=== PATIENT | male | born 1940 | race Caucasian/White ===

== ENCOUNTER → 2017-12-13 | Outpatient (CLI) | payer MEDICARE, OTHER ==
[2017-12-13] MEDS: SOD CHLORIDE 0.9% 100 ML (09:28)
[2017-12-13] MEDS: IOHEXOL 300MG/ML 150 ML BTL (09:28)
== END | disposition home or self-care (01) ==
LOC: C/S 08:34
DX: R31.9 Hematuria, unspecified (principal)
CPT/HCPCS: 74178

== ENCOUNTER → 2018-01-18 | Outpatient (CLI) | payer MEDICARE, OTHER | END | disposition home or self-care (01) | LOC: RAD 11:25 | DX: Z01.818 Encounter for other preprocedural examination (principal) | CPT/HCPCS: 71046 ==

== ENCOUNTER → 2018-03-03 | Outpatient (CLI) | payer MEDICARE, OTHER | END | disposition home or self-care (01) | LOC: NUC 08:31 | DX: C61 Malignant neoplasm of prostate (principal) | CPT/HCPCS: 78306; A9503 ==

== ENCOUNTER 2018-07-24 12:51 | Inpatient (IN) | payer MEDICARE, OTHER ==
[2018-07-24 13:40] LABS: ABNORMAL IP MESSAGE 1; HEMATOCRIT 28.9 % (42.0-52.0); HEMOGLOBIN 9.3 g/dl (14.0-18.0); MEAN CORPUSCULAR HGB CONC 32.2 g/dl (32.0-37.0); MEAN CORPUSCULAR VOLUME 108.6 fl (82.0-101.0); MEAN PLATELET VOLUME 9.3 fl (7.4-10.4); PLATELET COUNT 62 10^3/UL (140-415); POSITIVE DIFF @See below; RED BLOOD COUNT 2.66 10^6/ul (4.70-6.10); RED CELL DISTRIBUTION WIDTH 13.7 % (11.5-14.5)
[2018-07-24 13:50] LABS: ADD MAN DIFF? YES
[2018-07-24 13:55] LABS: ALANINE AMINOTRANSFERASE 33 IU/L (13-69); ALBUMIN 2.2 g/dl (3.3-4.9); ALBUMIN/GLOBULIN RATIO 0.61; ALKALINE PHOSPHATASE 83 IU/L (42-121); ANION GAP 10 (8-16); ASPARTATE AMINO TRANSFERASE 52 IU/L (15-46); BILIRUBIN,INDIRECT 2.1 mg/dl (0-1.1); BILIRUBIN,TOTAL 2.1 mg/dl (0.2-1.3); BLOOD UREA NITROGEN 14 mg/dl (7-20); CALCIUM 10.2 mg/dl (8.4-10.2); CARBON DIOXIDE 21 mmol/L (21-31); CHLORIDE 115 mmol/L (97-110); CREATININE 0.91 mg/dl (0.61-1.24); GLUCOSE 100 mg/dl (70-220); LIPASE 124 U/L (23-300); POTASSIUM 3.7 mmol/L (3.5-5.1); SODIUM 142 mmol/L (135-144); TOTAL PROTEIN 5.8 g/dl (6.1-8.1)
[2018-07-24 13:59] LABS: PROTIME 18.4 Sec (11.9-14.9); PT RATIO 1.4
[2018-07-24 14:00] LABS: PARTIAL THROMBOPLASTIN TIME 37.4 Sec (23.0-35.0)
[2018-07-24] MEDS: SOD CHLORIDE 0.9% 100 ML (15:20)
[2018-07-24] MEDS: IOHEXOL 100 ML (15:21)
[2018-07-24] MEDS: IOHEXOL 350MG/ML 50 ML BTL (15:21)
[2018-07-24 16:34] LABS: ANISOCYTOSIS 2+ (0-0); BAND NEUTROPHILS % (M) 1 % (0-4); BASOPHILS % (M) 1 % (0-2); EOSINOPHILS % (M) 13 % (0-7); LYMPHOCYTES #M 0.2 10^3/ul (0.8-2.9); LYMPHOCYTES % (M) 14 % (15-51); METAMYELOCYTES %M 1 % (0-0); MONOCYTE #M 0.1 10^3/ul (0.3-0.9); MONOCYTES % (M) 5 % (0-11); PLATELET ESTIMATE DECREASED; PROMYELOCYTES % (M) 1 % (0-0); SEG NEUT #M 1.3 10^3/ul (1.6-7.5); SEGMENTED NEUTROPHILS (M) % 64 % (39-77); SMUDGE%M 56 % (0-0)
[2018-07-24 17:14] LABS: TROPONIN-I < 0.012 ng/ml (0.000-0.120)
[2018-07-24] MEDS ORDERED: ONDANSETRON 4 MG INJ IV (17:30)
[2018-07-24] MEDS ORDERED: ACETAMINOPHEN 325 MG TAB PO (17:30)
[2018-07-24] MEDS: FUROSEMIDE 40 MG INJ IV (17:31)
[2018-07-24] MEDS: LORAZEPAM 2 MG INJ IV (17:31)
[2018-07-24] MEDS: LIDOCAINE 2% 20 ML UROJET SYRINGE MM (18:28)
[2018-07-24] MEDS ORDERED: NACL 0.9% 3 ML SYG IV (18:30)
[2018-07-24] MEDS: HYDROCODONE/APAP (5/325) TAB PO (19:43)
[2018-07-24] MEDS: morphine 2 MG INJ IV (20:56)
[2018-07-24] MEDS: TAMSULOSIN (SR) 0.4 MG CAP PO (20:57)
[2018-07-24] MEDS ORDERED: DOCUSATE SODIUM 100 MG CAP PO (21:00)
[2018-07-24] MEDS ORDERED: AL HYDROX/MG HYDROX/SIMETH 30 ML CUP PO (23:30)
[2018-07-24] MEDS: PANTOPRAZOLE (EC) 40 MG TAB PO (23:53)
[2018-07-25 00:33] LABS: PROSTATE SPECIFIC ANTIGEN 0.5 ng/ml (0.0-4.0)
[2018-07-25] MEDS: DOCUSATE SODIUM 100 MG CAP PO ×2 (05:43→20:47)
[2018-07-25] MEDS: PANTOPRAZOLE (EC) 40 MG TAB PO (05:43)
[2018-07-25 05:51] LABS: WHITE BLOOD COUNT 2.5 10^3/ul (4.8-10.8)
[2018-07-25 05:51] LABS: ABNORMAL IP MESSAGE 1; HEMATOCRIT 25.8 % (42.0-52.0); HEMOGLOBIN 8.4 g/dl (14.0-18.0); MEAN CORPUSCULAR HEMOGLOBIN 34.7 pg (29.0-33.0); MEAN CORPUSCULAR HGB CONC 32.6 g/dl (32.0-37.0); MEAN CORPUSCULAR VOLUME 106.6 fl (82.0-101.0); MEAN PLATELET VOLUME 9.9 fl (7.4-10.4); PLATELET COUNT 50 10^3/UL (140-415); POSITIVE DIFF @See below; RED BLOOD COUNT 2.42 10^6/ul (4.70-6.10); RED CELL DISTRIBUTION WIDTH 13.9 % (11.5-14.5)
[2018-07-25 06:01] LABS: ADD MAN DIFF? YES; PATH REVIEW? YES
[2018-07-25 06:19] LABS: ALANINE AMINOTRANSFERASE 35 IU/L (13-69); ALBUMIN 1.8 g/dl (3.3-4.9); ALBUMIN/GLOBULIN RATIO 0.56; ALKALINE PHOSPHATASE 69 IU/L (42-121); ANION GAP 8 (8-16); ASPARTATE AMINO TRANSFERASE 49 IU/L (15-46); BLOOD UREA NITROGEN 17 mg/dl (7-20); CALCIUM 10.1 mg/dl (8.4-10.2); CARBON DIOXIDE 21 mmol/L (21-31); CHLORIDE 117 mmol/L (97-110); CREATININE 1.13 mg/dl (0.61-1.24); GLUCOSE 113 mg/dl (70-220); POTASSIUM 3.8 mmol/L (3.5-5.1); SODIUM 142 mmol/L (135-144)
[2018-07-25 07:02] LABS: ANISOCYTOSIS 1+ (0-0); BAND NEUTROPHILS % (M) 3 % (0-4); BURR CELLS 1+ (0-0); EOSINOPHILS % (M) 2 % (0-7); LYMPHOCYTES #M 0.3 10^3/ul (0.8-2.9); LYMPHOCYTES % (M) 13 % (15-51); METAMYELOCYTES %M 1 % (0-0); MONOCYTES % (M) 1 % (0-11); MYELOCYTES % (M) 3 % (0-0); PLATELET ESTIMATE SIG DECREASED; POLYCHROMASIA 1+ (0-0); SEG NEUT #M 1.9 10^3/ul (1.6-7.5); SEGMENTED NEUTROPHILS (M) % 77 % (39-77); SMUDGE%M 10 % (0-0)
[2018-07-25] MEDS: LEVOTHYROXINE 125 MCG TAB PO (07:04)
[2018-07-25 08:21] LABS: HEMOGLOBIN A1C 4.4 % (0-5.9)
[2018-07-25] MEDS: FUROSEMIDE 20 MG TAB PO (11:02)
[2018-07-25] MEDS: SPIRONOLACTONE 50 MG TAB PO (11:02)
[2018-07-25] MEDS: morphine 2 MG INJ IV (16:39)
[2018-07-25] MEDS: TAMSULOSIN (SR) 0.4 MG CAP PO (20:46)
[2018-07-25] MEDS: HYDROCODONE/APAP (5/325) TAB PO (20:47)
[2018-07-26 06:11] LABS: ADD MAN DIFF? NO
[2018-07-26 06:14] LABS: ABNORMAL IP MESSAGE 1; BASOPHILS % 0.4 % (0.0-2.0); EOSINOPHILS # 0.1 10^3/ul (0.0-0.5); HEMATOCRIT 26.8 % (42.0-52.0); HEMOGLOBIN 8.6 g/dl (14.0-18.0); LYMPHOCYTES # 0.5 10^3/ul (0.8-2.9); LYMPHOCYTES % 17.2 % (15.0-51.0); MEAN CORPUSCULAR HEMOGLOBIN 35.2 pg (29.0-33.0); MEAN CORPUSCULAR HGB CONC 32.1 g/dl (32.0-37.0); MEAN CORPUSCULAR VOLUME 109.8 fl (82.0-101.0); MEAN PLATELET VOLUME 9.7 fl (7.4-10.4); MONOCYTE # 0.3 10^3/ul (0.3-0.9); NEUTROPHIL # 1.9 10^3/ul (1.6-7.5); PLATELET COUNT 50 10^3/UL (140-415); POSITIVE DIFF @See below; RED BLOOD COUNT 2.44 10^6/ul (4.70-6.10); RED CELL DISTRIBUTION WIDTH 14.5 % (11.5-14.5)
[2018-07-26 06:14] LABS: WHITE BLOOD COUNT 2.8 10^3/ul (4.8-10.8)
[2018-07-26 06:24] LABS: INR 1.62; PROTIME 19.6 Sec (11.9-14.9); PT RATIO 1.5
[2018-07-26 06:48] LABS: ALANINE AMINOTRANSFERASE 25 IU/L (13-69); ALBUMIN 1.9 g/dl (3.3-4.9); ALBUMIN/GLOBULIN RATIO 0.59; ALKALINE PHOSPHATASE 72 IU/L (42-121); ANION GAP 7 (8-16); ASPARTATE AMINO TRANSFERASE 50 IU/L (15-46); BLOOD UREA NITROGEN 18 mg/dl (7-20); CALCIUM 9.8 mg/dl (8.4-10.2); CARBON DIOXIDE 24 mmol/L (21-31); CHLORIDE 115 mmol/L (97-110); GLUCOSE 108 mg/dl (70-220); POTASSIUM 4.3 mmol/L (3.5-5.1); SODIUM 142 mmol/L (135-144); TOTAL PROTEIN 5.1 g/dl (6.1-8.1)
[2018-07-26] MEDS: LEVOTHYROXINE 125 MCG TAB PO (06:54)
[2018-07-26] MEDS: PANTOPRAZOLE (EC) 40 MG TAB PO (06:54)
[2018-07-26] MEDS: SPIRONOLACTONE 50 MG TAB PO (08:38)
[2018-07-26] MEDS: FUROSEMIDE 20 MG TAB PO (08:38)
[2018-07-26] MEDS: HYDROCODONE/APAP (5/325) TAB PO (11:47)
[2018-07-26] MEDS: BICALUTAMIDE 50 MG TAB PO (15:49)
[2018-07-26] MEDS: DOCUSATE SODIUM 100 MG CAP PO (20:12)
[2018-07-26] MEDS: morphine (ER) 15 MG TAB PO (20:12)
[2018-07-26] MEDS: TAMSULOSIN (SR) 0.4 MG CAP PO (20:12)
[2018-07-26] MEDS: POLYETHYLENE GLYCOL 17 GM PACKET PO (20:13)
[2018-07-27] MEDS: LEVOTHYROXINE 125 MCG TAB PO (06:19)
[2018-07-27] MEDS: PANTOPRAZOLE (EC) 40 MG TAB PO (06:19)
[2018-07-27] MEDS: HYDROmorphONE 1 MG/ML SYG IV ×2 (06:33→21:55)
[2018-07-27] MEDS: morphine (ER) 15 MG TAB PO ×2 (08:39→20:17)
[2018-07-27] MEDS: SPIRONOLACTONE 50 MG TAB PO (08:40)
[2018-07-27] MEDS: FUROSEMIDE 20 MG TAB PO (08:40)
[2018-07-27] MEDS: BICALUTAMIDE 50 MG TAB PO (08:48)
[2018-07-27] MEDS: TAMSULOSIN (SR) 0.4 MG CAP PO (20:16)
[2018-07-28] MEDS ORDERED: LORAZEPAM 2 MG INJ IV (01:30)
[2018-07-28] MEDS ORDERED: METOPROLOL 5 MG INJ IV (01:30)
[2018-07-28 02:10] LABS: ANION GAP 8 (8-16); BLOOD UREA NITROGEN 20 mg/dl (7-20); CALCIUM 9.7 mg/dl (8.4-10.2); CARBON DIOXIDE 23 mmol/L (21-31); CHLORIDE 111 mmol/L (97-110); CREATININE 1.09 mg/dl (0.61-1.24); GLUCOSE 102 mg/dl (70-220); MAGNESIUM 1.8 mg/dl (1.7-2.5); POTASSIUM 4.2 mmol/L (3.5-5.1); SODIUM 138 mmol/L (135-144)
[2018-07-28] MEDS: METOPROLOL 5 MG INJ IV (02:29)
[2018-07-28] MEDS: LEVOTHYROXINE 125 MCG TAB PO (06:22)
[2018-07-28] MEDS: PANTOPRAZOLE (EC) 40 MG TAB PO (06:22)
[2018-07-28] MEDS: SPIRONOLACTONE 50 MG TAB PO (09:12)
[2018-07-28] MEDS: FUROSEMIDE 20 MG TAB PO (09:12)
[2018-07-28] MEDS: morphine (ER) 15 MG TAB PO ×2 (09:13→21:25)
[2018-07-28] MEDS: BICALUTAMIDE 50 MG TAB PO (09:35)
[2018-07-28] MEDS: TAMSULOSIN (SR) 0.4 MG CAP PO (21:24)
[2018-07-28] MEDS: DOCUSATE SODIUM 100 MG CAP PO (21:27)
[2018-07-29] MEDS: PANTOPRAZOLE (EC) 40 MG TAB PO (07:20)
[2018-07-29] MEDS: LEVOTHYROXINE 125 MCG TAB PO (07:20)
[2018-07-29] MEDS: morphine (ER) 15 MG TAB PO (09:52)
[2018-07-29] MEDS: SPIRONOLACTONE 50 MG TAB PO (09:52)
[2018-07-29] MEDS: FUROSEMIDE 20 MG TAB PO (09:52)
[2018-07-29] MEDS ORDERED: traMADol 50 MG TAB PO ×2 (10:00→10:30)
[2018-07-29] MEDS: BICALUTAMIDE 50 MG TAB PO (10:18)
[2018-07-30] MEDS ORDERED: morphine (ER) 15 MG TAB PO (09:00)
== END 2018-07-29 19:06 | disposition home health service (06) | DRG 433 ==
LOC: E/R 12:51 → 6WM 18:40
DX: K70.30 Alcoholic cirrhosis of liver without ascites (principal); D61.818 Other pancytopenia; C79.11 Secondary malignant neoplasm of bladder; N13.30 Unspecified hydronephrosis; C61 Malignant neoplasm of prostate; R33.9 Retention of urine, unspecified; R31.0 Gross hematuria; I70.0 Atherosclerosis of aorta; K44.9 Diaphragmatic hernia without obstruction or gangrene; R16.1 Splenomegaly, not elsewhere classified; K40.90 Unilateral inguinal hernia, without obstruction or gangrene, not specified as recurrent; M51.37 Other intervertebral disc degeneration, lumbosacral region; E03.9 Hypothyroidism, unspecified; Z87.891 Personal history of nicotine dependence
CPT/HCPCS: 36415; 71045; 74177; 76705; 80048; 80053; 83036; 83690; 83735; 84153; 84154; 84443; 84484; 85025; 85610; 85730; 87086; 93005; 93970; 99285-25

== ENCOUNTER 2018-10-23 15:17 | Inpatient (IN) | payer MEDICARE, OTHER ==
[2018-10-23 16:27] LABS: ABNORMAL IP MESSAGE 1; HEMATOCRIT 32.3 % (42.0-52.0); HEMOGLOBIN 10.4 g/dl (14.0-18.0); MEAN CORPUSCULAR HEMOGLOBIN 33.3 pg (29.0-33.0); MEAN CORPUSCULAR HGB CONC 32.2 g/dl (32.0-37.0); MEAN CORPUSCULAR VOLUME 103.5 fl (82.0-101.0); MEAN PLATELET VOLUME 8.9 fl (7.4-10.4); PLATELET COUNT 86 10^3/UL (140-415); POSITIVE DIFF @See below; RED BLOOD COUNT 3.12 10^6/ul (4.70-6.10); RED CELL DISTRIBUTION WIDTH 16.2 % (11.5-14.5)
[2018-10-23 16:27] LABS: WHITE BLOOD COUNT 10.6 10^3/ul (4.8-10.8)
[2018-10-23 16:31] LABS: ADD MAN DIFF? YES
[2018-10-23 16:45] LABS: ALANINE AMINOTRANSFERASE 19 IU/L (13-69); ALBUMIN 2.3 g/dl (3.3-4.9); ALBUMIN/GLOBULIN RATIO 0.63; ALKALINE PHOSPHATASE 87 IU/L (42-121); ANION GAP 11 (5-13); ASPARTATE AMINO TRANSFERASE 38 IU/L (15-46); BILIRUBIN,INDIRECT 3.5 mg/dl (0-1.1); BILIRUBIN,TOTAL 3.8 mg/dl (0.2-1.3); BLOOD UREA NITROGEN 26 mg/dl (7-20); CALCIUM 10.8 mg/dl (8.4-10.2); CARBON DIOXIDE 14 mmol/L (21-31); CHLORIDE 112 mmol/L (97-110); CREATININE 1.66 mg/dl (0.61-1.24); GLUCOSE 71 mg/dl (70-220); POTASSIUM 4.1 mmol/L (3.5-5.1); SODIUM 137 mmol/L (135-144); TOTAL PROTEIN 5.9 g/dl (6.1-8.1)
[2018-10-23 16:46] LABS: INR 1.88; PROTIME 21.7 Sec (11.9-14.9); PT RATIO 1.7
[2018-10-23 16:47] LABS: PARTIAL THROMBOPLASTIN TIME 37.6 Sec (23.0-35.0)
[2018-10-23] MEDS: SODIUM CHLORIDE 0.9% 1L BAG IV* (16:48)
[2018-10-23] MEDS: HYDROCODONE/APAP (5/325) TAB PO (16:51)
[2018-10-23 16:56] LABS: TROPONIN-I 0.034 ng/ml (0.000-0.120)
[2018-10-23 16:58] LABS: ANISOCYTOSIS 1+ (0-0); EOSINOPHILS % (M) 1 % (0-7); GIANT THROMBO% (M) 1 % (0-0); LYMPHOCYTES % (M) 19 % (15-51); MONOCYTE #M 0.9 10^3/ul (0.3-0.9); MONOCYTES % (M) 9 % (0-11); PLATELET ESTIMATE DECREASED; POIKILOCYTOSIS 2+ (0-0); POLYCHROMASIA 1+ (0-0); SEGMENTED NEUTROPHILS (M) % 71 % (39-77); SMUDGE%M 18 % (0-0)
[2018-10-23] MEDS: PIPER-TAZO 3.375 GM IV (PMX) 100 ML IVPB ×2 (17:59→23:32)
[2018-10-23] MEDS: SOD CHLORIDE 0.9% 1,000 ML IV ×2 (17:59→23:32)
[2018-10-23 18:11] LABS: ADD UMIC YES; UR ASCORBIC ACID NEGATIVE (NEGATIVE); UR BILIRUBIN (Dip) NEGATIVE (NEGATIVE); UR BLOOD (Dip) 3+ mg/dL (NEGATIVE); UR CALCIUM OXALATE CRYSTAL MODERATE /HPF (NONE SEEN); UR CLARITY CLOUDY (CLEAR); UR COLOR AMBER (YELLOW); UR GLUCOSE (Dip) NEGATIVE (NEGATIVE); UR KETONES (Dip) TRACE mg/dL (NEGATIVE); UR LEUKOCYTE ESTERASE (Dip) 2+ Leu/ul (NEGATIVE); UR MUCUS FEW /HPF (NONE SEEN); UR NITRITE (Dip) NEGATIVE (NEGATIVE); UR RBC > 182 /HPF (0-5); UR SPECIFIC GRAVITY (Dip) 1.016 (1.003-1.030); UR TOTAL PROTEIN (Dip) 3+ mg/dl (NEGATIVE); UR UROBILINOGEN (Dip) 2+ mg/dL (NEGATIVE); UR WBC > 182 /HPF (0-5)
[2018-10-23] MEDS: VANCOMYCIN 1 GM (PMX) 250 ML IVPB (18:37)
[2018-10-23] MEDS ORDERED: NACL 0.9% 3 ML SYG IV (19:00)
[2018-10-23] MEDS ORDERED: VANCOMYCIN IV PER PHARMACY XX (19:00)
[2018-10-23] MEDS ORDERED: ONDANSETRON 4 MG INJ IV (19:00)
[2018-10-23] MEDS ORDERED: morphine 2 MG INJ IV (19:00)
[2018-10-23] MEDS: SOD CHLORIDE 0.9% 2,040 ML IV (19:33)
[2018-10-23 23:03] LABS: LACTIC ACID 3.7 mmol/L (0.5-2.0)
[2018-10-24] MEDS: SOD CHLORIDE 0.9% 1,000 ML IV ×3 (04:55→21:32)
[2018-10-24] MEDS: PIPER-TAZO 3.375 GM IV (PMX) 100 ML IVPB ×2 (05:03→14:00)
[2018-10-24 05:28] LABS: ADD MAN DIFF? NO
[2018-10-24 05:30] LABS: ABNORMAL IP MESSAGE 1; BASOPHILS % 0.3 % (0.0-2.0); EOSINOPHILS # 0.2 10^3/ul (0.0-0.5); EOSINOPHILS % 3.1 % (0.0-7.0); HEMATOCRIT 26.7 % (42.0-52.0); HEMOGLOBIN 8.7 g/dl (14.0-18.0); LYMPHOCYTES # 1.1 10^3/ul (0.8-2.9); LYMPHOCYTES % 18.2 % (15.0-51.0); MEAN CORPUSCULAR HEMOGLOBIN 33.7 pg (29.0-33.0); MEAN CORPUSCULAR HGB CONC 32.6 g/dl (32.0-37.0); MEAN CORPUSCULAR VOLUME 103.5 fl (82.0-101.0); MEAN PLATELET VOLUME 9.3 fl (7.4-10.4); MONOCYTE # 0.5 10^3/ul (0.3-0.9); MONOCYTES % 8.6 % (0.0-11.0); NEUTROPHIL # 4.3 10^3/ul (1.6-7.5); NEUTROPHILS % 69.5 % (39.0-77.0); PLATELET COUNT 59 10^3/UL (140-415); POSITIVE DIFF @See below; RED BLOOD COUNT 2.58 10^6/ul (4.70-6.10); RED CELL DISTRIBUTION WIDTH 15.9 % (11.5-14.5)
[2018-10-24 05:30] LABS: WHITE BLOOD COUNT 6.2 10^3/ul (4.8-10.8)
[2018-10-24 05:53] LABS: LACTIC ACID 2.9 mmol/L (0.5-2.0)
[2018-10-24 05:53] LABS: ANION GAP 10 (5-13); BLOOD UREA NITROGEN 23 mg/dl (7-20); CALCIUM 9.9 mg/dl (8.4-10.2); CARBON DIOXIDE 15 mmol/L (21-31); CHLORIDE 118 mmol/L (97-110); CREATININE 1.28 mg/dl (0.61-1.24); GLUCOSE 72 mg/dl (70-220); MAGNESIUM 2.1 mg/dl (1.7-2.5); PHOSPHORUS 2.2 mg/dl (2.5-4.9); POTASSIUM 3.7 mmol/L (3.5-5.1); SODIUM 143 mmol/L (135-144)
[2018-10-24] MEDS: HYDROCODONE/APAP (5/325) TAB PO ×2 (10:25→22:46)
[2018-10-24] MEDS ORDERED: VANCOMYCIN 1 GM 250 ML IVPB ×2 (15:00→17:00)
[2018-10-24] MEDS: CEFTRIAXONE 1 GM/50 ML (PMX) 50 ML IVPB (16:24)
[2018-10-24] MEDS ORDERED: traMADol 50 MG TAB PO (16:30)
[2018-10-24] MEDS: predniSONE 5 MG TAB PO (21:31)
[2018-10-24] MEDS: BACTRIM DS PO (21:31)
[2018-10-24] MEDS ORDERED: VITAMIN A & D 5 GM OINT PACKET TOP (22:42)
[2018-10-25 06:01] LABS: ADD MAN DIFF? NO
[2018-10-25] MEDS: LEVOTHYROXINE 125 MCG TAB PO (06:05)
[2018-10-25 06:22] LABS: ABNORMAL IP MESSAGE 1; BASOPHILS % 0.3 % (0.0-2.0); EOSINOPHILS # 0.1 10^3/ul (0.0-0.5); EOSINOPHILS % 3.1 % (0.0-7.0); HEMATOCRIT 26.5 % (42.0-52.0); HEMOGLOBIN 8.5 g/dl (14.0-18.0); LYMPHOCYTES # 0.6 10^3/ul (0.8-2.9); LYMPHOCYTES % 18.1 % (15.0-51.0); MEAN CORPUSCULAR HEMOGLOBIN 33.6 pg (29.0-33.0); MEAN CORPUSCULAR HGB CONC 32.1 g/dl (32.0-37.0); MEAN CORPUSCULAR VOLUME 104.7 fl (82.0-101.0); MEAN PLATELET VOLUME 9.5 fl (7.4-10.4); MONOCYTE # 0.2 10^3/ul (0.3-0.9); MONOCYTES % 5.6 % (0.0-11.0); NEUTROPHIL # 2.3 10^3/ul (1.6-7.5); NEUTROPHILS % 72.3 % (39.0-77.0); PLATELET COUNT 58 10^3/UL (140-415); POSITIVE DIFF @See below; RED BLOOD COUNT 2.53 10^6/ul (4.70-6.10); RED CELL DISTRIBUTION WIDTH 16.4 % (11.5-14.5)
[2018-10-25 06:22] LABS: WHITE BLOOD COUNT 3.2 10^3/ul (4.8-10.8)
[2018-10-25 06:53] LABS: ANION GAP 4 (5-13); BLOOD UREA NITROGEN 22 mg/dl (7-20); CALCIUM 9.9 mg/dl (8.4-10.2); CARBON DIOXIDE 15 mmol/L (21-31); CHLORIDE 124 mmol/L (97-110); CREATININE 1.11 mg/dl (0.61-1.24); GLUCOSE 99 mg/dl (70-220); POTASSIUM 3.9 mmol/L (3.5-5.1); SODIUM 143 mmol/L (135-144)
[2018-10-25] MEDS: SOD CHLORIDE 0.9% 1,000 ML IV (08:53)
[2018-10-25] MEDS: predniSONE 5 MG TAB PO (09:15)
[2018-10-25] MEDS: BACTRIM DS PO (09:15)
== END 2018-10-25 14:12 | disposition home or self-care (01) | DRG 871 ==
LOC: E/R 15:17 → 6WM 10-24 14:18 → ICU 17:11
DX: A41.9 Sepsis, unspecified organism (principal); R65.21 Severe sepsis with septic shock; G93.41 Metabolic encephalopathy; N17.0 Acute kidney failure with tubular necrosis; D61.818 Other pancytopenia; N39.0 Urinary tract infection, site not specified; C79.9 Secondary malignant neoplasm of unspecified site; K74.60 Unspecified cirrhosis of liver; K72.90 Hepatic failure, unspecified without coma; Z85.46 Personal history of malignant neoplasm of prostate
CPT/HCPCS: 36415; 71045; 76775; 80048; 80053; 81001; 83605; 83735; 84100; 84484; 85025; 85610; 85730; 87040; 87045; 87075; 87081; 87086; 92526; 92610; 93005; 99291-25

== ENCOUNTER 2018-10-29 07:37 | Inpatient (IN) | payer MEDICARE, OTHER ==
[2018-10-29] MEDS ORDERED: morphine 4 MG/ML VIAL IV (07:54)
[2018-10-29] MEDS: ONDANSETRON 4 MG INJ IV (08:38)
[2018-10-29] MEDS: HYDROmorphONE 0.5 MG/0.5 ML SYG IV (08:39)
[2018-10-29 08:41] LABS: ADD MAN DIFF? NO
[2018-10-29 08:49] LABS: ABNORMAL IP MESSAGE 1; BASOPHILS % 0.2 % (0.0-2.0); EOSINOPHILS # 0.2 10^3/ul (0.0-0.5); EOSINOPHILS % 3.4 % (0.0-7.0); HEMATOCRIT 28.3 % (42.0-52.0); LYMPHOCYTES # 1.7 10^3/ul (0.8-2.9); LYMPHOCYTES % 28.4 % (15.0-51.0); MEAN CORPUSCULAR HEMOGLOBIN 34.2 pg (29.0-33.0); MEAN CORPUSCULAR HGB CONC 31.8 g/dl (32.0-37.0); MEAN CORPUSCULAR VOLUME 107.6 fl (82.0-101.0); MEAN PLATELET VOLUME 9.3 fl (7.4-10.4); MONOCYTE # 0.7 10^3/ul (0.3-0.9); MONOCYTES % 11.3 % (0.0-11.0); NEUTROPHIL # 3.4 10^3/ul (1.6-7.5); NEUTROPHILS % 56.2 % (39.0-77.0); PLATELET COUNT 57 10^3/UL (140-415); POSITIVE DIFF @See below; RED BLOOD COUNT 2.63 10^6/ul (4.70-6.10); RED CELL DISTRIBUTION WIDTH 17.5 % (11.5-14.5)
[2018-10-29] MEDS ORDERED: ACETAMINOPHEN 325 MG TAB PO ×2 (09:00→11:30)
[2018-10-29] MEDS ORDERED: ONDANSETRON 4 MG INJ IV ×2 (09:00→11:30)
[2018-10-29 09:04] LABS: INR 1.61; PROTIME 19.2 Sec (11.9-14.9); PT RATIO 1.5
[2018-10-29 09:05] LABS: PARTIAL THROMBOPLASTIN TIME 34.4 Sec (23.0-35.0)
[2018-10-29 09:06] LABS: ALANINE AMINOTRANSFERASE 33 IU/L (13-69); ALBUMIN 2.1 g/dl (3.3-4.9); ALKALINE PHOSPHATASE 74 IU/L (42-121); ANION GAP 1 (5-13); ASPARTATE AMINO TRANSFERASE 38 IU/L (15-46); BLOOD UREA NITROGEN 31 mg/dl (7-20); CALCIUM 10.2 mg/dl (8.4-10.2); CARBON DIOXIDE 20 mmol/L (21-31); CHLORIDE 117 mmol/L (97-110); CREATININE 1.14 mg/dl (0.61-1.24); GLUCOSE 99 mg/dl (70-220); POTASSIUM 4.9 mmol/L (3.5-5.1); SODIUM 138 mmol/L (135-144); TOTAL PROTEIN 5.1 g/dl (6.1-8.1)
[2018-10-29 09:06] LABS: AMMONIA < 9 umol/l (9-30)
[2018-10-29 09:16] LABS: TROPONIN-I 0.019 ng/ml (0.000-0.120)
[2018-10-29] MEDS ORDERED: DOCUSATE SODIUM 100 MG CAP PO (11:30)
[2018-10-29] MEDS ORDERED: HYDROCODONE/APAP (5/325) TAB PO (11:30)
[2018-10-29] MEDS ORDERED: NACL 0.9% 3 ML SYG IV (11:30)
[2018-10-29 23:11] LABS: ADD UMIC YES; UR AMORPHOUS CRYSTAL FEW /HPF (NONE SEEN); UR ASCORBIC ACID NEGATIVE (NEGATIVE); UR BACTERIA FEW /HPF (NONE SEEN); UR BILIRUBIN (Dip) NEGATIVE (NEGATIVE); UR BLOOD (Dip) 3+ mg/dL (NEGATIVE); UR CLARITY TURBID (CLEAR); UR COLOR AMBER (YELLOW); UR GLUCOSE (Dip) NEGATIVE (NEGATIVE); UR KETONES (Dip) TRACE mg/dL (NEGATIVE); UR LEUKOCYTE ESTERASE (Dip) 2+ Leu/ul (NEGATIVE); UR MUCUS MODERATE /HPF (NONE SEEN); UR NITRITE (Dip) NEGATIVE (NEGATIVE); UR RBC > 182 /HPF (0-5); UR SPECIFIC GRAVITY (Dip) 1.018 (1.003-1.030); UR TOTAL PROTEIN (Dip) 1+ mg/dl (NEGATIVE); UR UROBILINOGEN (Dip) 2+ mg/dL (NEGATIVE); UR WBC > 182 /HPF (0-5)
[2018-10-29] MEDS: SOD CHLORIDE 0.9% 1,000 ML IV (23:45)
[2018-10-30] MEDS: PANTOPRAZOLE (EC) 40 MG TAB PO (06:00)
[2018-10-30] MEDS: LEVOTHYROXINE 125 MCG TAB PO (06:16)
[2018-10-30 06:26] LABS: ADD MAN DIFF? NO
[2018-10-30 06:27] LABS: ABNORMAL IP MESSAGE 1; BASOPHILS % 0.4 % (0.0-2.0); EOSINOPHILS # 0.2 10^3/ul (0.0-0.5); EOSINOPHILS % 3.5 % (0.0-7.0); HEMATOCRIT 26.8 % (42.0-52.0); HEMOGLOBIN 8.5 g/dl (14.0-18.0); LYMPHOCYTES # 1.5 10^3/ul (0.8-2.9); LYMPHOCYTES % 27.1 % (15.0-51.0); MEAN CORPUSCULAR HEMOGLOBIN 33.9 pg (29.0-33.0); MEAN CORPUSCULAR HGB CONC 31.7 g/dl (32.0-37.0); MEAN CORPUSCULAR VOLUME 106.8 fl (82.0-101.0); MONOCYTE # 0.6 10^3/ul (0.3-0.9); MONOCYTES % 11.2 % (0.0-11.0); NEUTROPHIL # 3.1 10^3/ul (1.6-7.5); NEUTROPHILS % 57.4 % (39.0-77.0); PLATELET COUNT 49 10^3/UL (140-415); POSITIVE DIFF @See below; RED BLOOD COUNT 2.51 10^6/ul (4.70-6.10); RED CELL DISTRIBUTION WIDTH 17.7 % (11.5-14.5)
[2018-10-30 06:27] LABS: WHITE BLOOD COUNT 5.4 10^3/ul (4.8-10.8)
[2018-10-30 07:00] LABS: ALANINE AMINOTRANSFERASE 30 IU/L (13-69); ALBUMIN 1.9 g/dl (3.3-4.9); ALBUMIN/GLOBULIN RATIO 0.61; ALKALINE PHOSPHATASE 63 IU/L (42-121); ANION GAP 9 (5-13); ASPARTATE AMINO TRANSFERASE 27 IU/L (15-46); BILIRUBIN,INDIRECT 2.1 mg/dl (0-1.1); BILIRUBIN,TOTAL 2.1 mg/dl (0.2-1.3); BLOOD UREA NITROGEN 34 mg/dl (7-20); CALCIUM 9.9 mg/dl (8.4-10.2); CARBON DIOXIDE 18 mmol/L (21-31); CHLORIDE 116 mmol/L (97-110); GLUCOSE 80 mg/dl (70-220); MAGNESIUM 2.3 mg/dl (1.7-2.5); PHOSPHORUS 2.4 mg/dl (2.5-4.9); POTASSIUM 4.4 mmol/L (3.5-5.1); SODIUM 143 mmol/L (135-144)
[2018-10-30 08:02] LABS: FOLATE 4.9 ng/ml (2.8-20.0)
[2018-10-30] MEDS ORDERED: ENOXAPARIN 40 MG/0.4 ML SYG SC (09:00)
[2018-10-30] MEDS ORDERED: NON-FORMULARY/PATIENT OWN MED (Abiraterone Acetate (Zytiga) 1,000 MG) PO (14:30)
[2018-10-30] MEDS: CEFTRIAXONE 1 GM/50 ML (PMX) 50 ML IVPB (15:59)
[2018-10-30] MEDS: SOD CHLORIDE 0.9% 1,000 ML IV (16:02)
[2018-10-30] MEDS: [UNRECOGNIZED DRUG - OTHER] PO (21:04)
[2018-10-30 23:09] LABS: IMMEDIATE SPIN CROSSMATCH 1
[2018-10-31] MEDS: SOD CHLORIDE 0.9% 1,000 ML IV ×4 (00:30→20:02)
[2018-10-31 05:26] LABS: ADD MAN DIFF? NO
[2018-10-31 05:28] LABS: WHITE BLOOD COUNT 4.3 10^3/ul (4.8-10.8)
[2018-10-31 05:28] LABS: ABNORMAL IP MESSAGE 1; BASOPHILS % 0.5 % (0.0-2.0); EOSINOPHILS # 0.1 10^3/ul (0.0-0.5); EOSINOPHILS % 2.8 % (0.0-7.0); HEMOGLOBIN 9.2 g/dl (14.0-18.0); LYMPHOCYTES # 1.3 10^3/ul (0.8-2.9); LYMPHOCYTES % 30.8 % (15.0-51.0); MEAN CORPUSCULAR HEMOGLOBIN 32.7 pg (29.0-33.0); MEAN CORPUSCULAR HGB CONC 31.7 g/dl (32.0-37.0); MEAN CORPUSCULAR VOLUME 103.2 fl (82.0-101.0); MONOCYTE # 0.4 10^3/ul (0.3-0.9); MONOCYTES % 9.9 % (0.0-11.0); NEUTROPHIL # 2.4 10^3/ul (1.6-7.5); NEUTROPHILS % 55.8 % (39.0-77.0); PLATELET COUNT 47 10^3/UL (140-415); POSITIVE DIFF @See below; RED BLOOD COUNT 2.81 10^6/ul (4.70-6.10); RED CELL DISTRIBUTION WIDTH 19.1 % (11.5-14.5)
[2018-10-31] MEDS: LEVOTHYROXINE 125 MCG TAB PO (05:33)
[2018-10-31] MEDS: PANTOPRAZOLE (EC) 40 MG TAB PO (05:34)
[2018-10-31 05:57] LABS: ANION GAP 8 (5-13); BLOOD UREA NITROGEN 31 mg/dl (7-20); CALCIUM 9.7 mg/dl (8.4-10.2); CARBON DIOXIDE 18 mmol/L (21-31); CHLORIDE 118 mmol/L (97-110); CREATININE 0.85 mg/dl (0.61-1.24); GLUCOSE 86 mg/dl (70-220); POTASSIUM 3.9 mmol/L (3.5-5.1); SODIUM 144 mmol/L (135-144)
[2018-10-31] MEDS: [UNRECOGNIZED DRUG - OTHER] PO (08:16)
[2018-10-31] MEDS: predniSONE 5 MG TAB PO ×2 (13:00→20:44)
[2018-10-31] MEDS: CEFTRIAXONE 1 GM/50 ML (PMX) 50 ML IVPB (15:00)
[2018-10-31] MEDS ORDERED: MIDAZOLAM 1 MG/ML 2 ML INJ (15:47)
[2018-10-31] MEDS ORDERED: FENTAnyl 50 MCG/ML VIAL ×2 (15:48→16:17)
[2018-10-31] MEDS ORDERED: CEFAZOLIN 1 GM INJ (16:01)
[2018-10-31] MEDS: POLYMYXIN/BACITRACIN 1L IRRIG (16:31)
[2018-10-31] MEDS ORDERED: FUROSEMIDE 20 MG INJ ×2 (16:42→16:46)
[2018-10-31 16:52] LABS: TYPE AND SCREEN 1
[2018-10-31] MEDS ORDERED: ETOMIDATE 20 MG INJ (17:11)
[2018-10-31] MEDS ORDERED: LIDOCAINE 2% (SDV) 5 ML INJ (17:11)
[2018-10-31] MEDS ORDERED: ONDANSETRON 4 MG INJ (17:11)
[2018-10-31] MEDS ORDERED: HYDROCODONE/APAP (5/325) TAB PO (17:30)
[2018-10-31] MEDS ORDERED: NACL 0.9% 3 ML SYG IV (17:30)
[2018-10-31] MEDS ORDERED: HYDROmorphONE 1 MG/ML SYG IV (17:30)
[2018-10-31 17:56] LABS: ADD MAN DIFF? NO
[2018-10-31 17:58] LABS: ABNORMAL IP MESSAGE 1; BASOPHILS % 0.4 % (0.0-2.0); EOSINOPHILS # 0.1 10^3/ul (0.0-0.5); EOSINOPHILS % 2.8 % (0.0-7.0); HEMATOCRIT 32.8 % (42.0-52.0); HEMOGLOBIN 10.3 g/dl (14.0-18.0); LYMPHOCYTES # 1.5 10^3/ul (0.8-2.9); LYMPHOCYTES % 29.5 % (15.0-51.0); MEAN CORPUSCULAR HGB CONC 31.4 g/dl (32.0-37.0); MEAN CORPUSCULAR VOLUME 105.1 fl (82.0-101.0); MEAN PLATELET VOLUME 9.4 fl (7.4-10.4); MONOCYTE # 0.4 10^3/ul (0.3-0.9); NEUTROPHILS % 60.1 % (39.0-77.0); PLATELET COUNT 49 10^3/UL (140-415); POSITIVE DIFF @See below; RED BLOOD COUNT 3.12 10^6/ul (4.70-6.10); RED CELL DISTRIBUTION WIDTH 19.5 % (11.5-14.5)
[2018-10-31] MEDS ORDERED: LABETALOL HCL 20MG INJ IV (18:00)
[2018-10-31] MEDS ORDERED: DIPHENHYDRAMINE 50 MG INJ IV (18:00)
[2018-10-31] MEDS ORDERED: FENTAnyl 50 MCG/ML VIAL IV (18:00)
[2018-10-31] MEDS ORDERED: HYDROmorphONE 1 MG/5 ML IV SYRINGE IV ×2 (18:00)
[2018-10-31] MEDS ORDERED: METOCLOPRAMIDE 10 MG INJ IV (18:00)
[2018-10-31] MEDS ORDERED: ONDANSETRON 4 MG INJ IV (18:00)
[2018-10-31 18:23] LABS: IMMEDIATE SPIN CROSSMATCH 1 4
[2018-10-31] MEDS: CEFAZOLIN 2 GM/50 ML (PMX) 50 ML IVPB (20:03)
[2018-11-01] MEDS: morphine SULFATE/PF (2 MG/2 ML) SYG IV (00:47)
[2018-11-01] MEDS: CEFAZOLIN 2 GM/50 ML (PMX) 50 ML IVPB ×2 (03:10→10:45)
[2018-11-01] MEDS: SOD CHLORIDE 0.9% 1,000 ML IV ×2 (05:39→09:46)
[2018-11-01] MEDS: PANTOPRAZOLE (EC) 40 MG TAB PO (05:53)
[2018-11-01 06:06] LABS: ADD MAN DIFF? NO
[2018-11-01 06:17] LABS: ABNORMAL IP MESSAGE 1; BASOPHILS % 0.8 % (0.0-2.0); EOSINOPHILS # 0.2 10^3/ul (0.0-0.5); EOSINOPHILS % 3.4 % (0.0-7.0); HEMATOCRIT 26.3 % (42.0-52.0); HEMOGLOBIN 8.2 g/dl (14.0-18.0); LYMPHOCYTES # 1.8 10^3/ul (0.8-2.9); LYMPHOCYTES % 35.3 % (15.0-51.0); MEAN CORPUSCULAR HEMOGLOBIN 32.7 pg (29.0-33.0); MEAN CORPUSCULAR HGB CONC 31.2 g/dl (32.0-37.0); MEAN CORPUSCULAR VOLUME 104.8 fl (82.0-101.0); MEAN PLATELET VOLUME 9.8 fl (7.4-10.4); MONOCYTE # 0.6 10^3/ul (0.3-0.9); MONOCYTES % 11.6 % (0.0-11.0); NEUTROPHIL # 2.4 10^3/ul (1.6-7.5); NEUTROPHILS % 48.5 % (39.0-77.0); NUCLEATED RED BLOOD CELLS% 0.4 /100WBC (0.0-0.0); PLATELET COUNT 46 10^3/UL (140-415); POSITIVE DIFF @See below; RED BLOOD COUNT 2.51 10^6/ul (4.70-6.10); RED CELL DISTRIBUTION WIDTH 19.3 % (11.5-14.5)
[2018-11-01 06:34] LABS: ANION GAP 2 (5-13); BLOOD UREA NITROGEN 29 mg/dl (7-20); CALCIUM 9.6 mg/dl (8.4-10.2); CARBON DIOXIDE 21 mmol/L (21-31); CHLORIDE 121 mmol/L (97-110); CREATININE 0.94 mg/dl (0.61-1.24); GLUCOSE 83 mg/dl (70-220); POTASSIUM 3.1 mmol/L (3.5-5.1); SODIUM 144 mmol/L (135-144)
[2018-11-01] MEDS: LEVOTHYROXINE 125 MCG TAB PO (06:51)
[2018-11-01] MEDS: ENOXAPARIN 40 MG/0.4 ML SYG SC (09:46)
[2018-11-01] MEDS: predniSONE 5 MG TAB PO ×2 (10:03→20:44)
[2018-11-01] MEDS: [UNRECOGNIZED DRUG - OTHER] PO (10:03)
[2018-11-01] MEDS: DOCUSATE SODIUM 100 MG CAP PO ×2 (10:03→20:44)
[2018-11-01] MEDS: POTASSIUM CHLORIDE (SR) 20 MEQ TAB PO ×2 (14:15→20:44)
[2018-11-01] MEDS: CEFTRIAXONE 1 GM/50 ML (PMX) 50 ML IVPB (15:17)
[2018-11-02 05:21] LABS: ADD MAN DIFF? NO
[2018-11-02 05:23] LABS: ABNORMAL IP MESSAGE 1; BASOPHILS % 0.3 % (0.0-2.0); EOSINOPHILS # 0.1 10^3/ul (0.0-0.5); HEMATOCRIT 23.1 % (42.0-52.0); HEMOGLOBIN 7.2 g/dl (14.0-18.0); LYMPHOCYTES % 31.1 % (15.0-51.0); MEAN CORPUSCULAR HEMOGLOBIN 32.7 pg (29.0-33.0); MEAN CORPUSCULAR HGB CONC 31.2 g/dl (32.0-37.0); MEAN PLATELET VOLUME 9.3 fl (7.4-10.4); MONOCYTE # 0.3 10^3/ul (0.3-0.9); MONOCYTES % 8.2 % (0.0-11.0); NEUTROPHIL # 1.8 10^3/ul (1.6-7.5); NEUTROPHILS % 58.1 % (39.0-77.0); PLATELET COUNT 49 10^3/UL (140-415); POSITIVE DIFF @See below; RED CELL DISTRIBUTION WIDTH 19.3 % (11.5-14.5)
[2018-11-02 05:23] LABS: WHITE BLOOD COUNT 3.1 10^3/ul (4.8-10.8)
[2018-11-02 05:48] LABS: ANION GAP 3 (5-13); BLOOD UREA NITROGEN 28 mg/dl (7-20); CALCIUM 9.6 mg/dl (8.4-10.2); CARBON DIOXIDE 20 mmol/L (21-31); CHLORIDE 124 mmol/L (97-110); CREATININE 0.89 mg/dl (0.61-1.24); GLUCOSE 86 mg/dl (70-220); POTASSIUM 4.5 mmol/L (3.5-5.1); SODIUM 147 mmol/L (135-144)
[2018-11-02 05:52] LABS: MAGNESIUM 2.1 mg/dl (1.7-2.5)
[2018-11-02] MEDS: LEVOTHYROXINE 125 MCG TAB PO (06:21)
[2018-11-02] MEDS: PANTOPRAZOLE (EC) 40 MG TAB PO (06:21)
[2018-11-02] MEDS: POTASSIUM CHLORIDE (SR) 20 MEQ TAB PO (09:42)
[2018-11-02] MEDS: DOCUSATE SODIUM 100 MG CAP PO (09:43)
[2018-11-02] MEDS: predniSONE 5 MG TAB PO ×2 (09:43→21:58)
[2018-11-02] MEDS: [UNRECOGNIZED DRUG - OTHER] PO (09:46)
[2018-11-02] MEDS: ENOXAPARIN 40 MG/0.4 ML SYG SC (10:16)
[2018-11-02] MEDS: SOD CHLORIDE 0.9% 1,000 ML IV (12:30)
[2018-11-02] MEDS: CEFTRIAXONE 1 GM/50 ML (PMX) 50 ML IVPB (15:35)
[2018-11-02] MEDS ORDERED: DOCUSATE SODIUM 10 MG/ML (10ML CUP) PO (16:00)
[2018-11-02 17:53] LABS: IMMEDIATE SPIN CROSSMATCH 1 1
[2018-11-02] MEDS: SOD CHLORIDE 0.9% 250 ML IV* (17:55)
[2018-11-02] MEDS: DOCUSATE SODIUM 10 MG/ML (10ML CUP) PO (21:59)
[2018-11-03 06:21] LABS: ADD MAN DIFF? NO
[2018-11-03] MEDS: LEVOTHYROXINE 125 MCG TAB PO ×2 (06:29→08:55)
[2018-11-03] MEDS: PANTOPRAZOLE (EC) 40 MG TAB PO (06:29)
[2018-11-03 06:33] LABS: WHITE BLOOD COUNT 4.2 10^3/ul (4.8-10.8)
[2018-11-03 06:33] LABS: ABNORMAL IP MESSAGE 1; BASOPHILS % 0.2 % (0.0-2.0); EOSINOPHILS # 0.1 10^3/ul (0.0-0.5); EOSINOPHILS % 2.6 % (0.0-7.0); HEMATOCRIT 27.2 % (42.0-52.0); HEMOGLOBIN 8.6 g/dl (14.0-18.0); LYMPHOCYTES # 1.2 10^3/ul (0.8-2.9); LYMPHOCYTES % 28.6 % (15.0-51.0); MEAN CORPUSCULAR HEMOGLOBIN 32.7 pg (29.0-33.0); MEAN CORPUSCULAR HGB CONC 31.6 g/dl (32.0-37.0); MEAN CORPUSCULAR VOLUME 103.4 fl (82.0-101.0); MEAN PLATELET VOLUME 9.8 fl (7.4-10.4); MONOCYTE # 0.4 10^3/ul (0.3-0.9); MONOCYTES % 8.6 % (0.0-11.0); NEUTROPHIL # 2.5 10^3/ul (1.6-7.5); NEUTROPHILS % 59.5 % (39.0-77.0); NUCLEATED RED BLOOD CELLS% 0.5 /100WBC (0.0-0.0); POSITIVE DIFF @See below; RED BLOOD COUNT 2.63 10^6/ul (4.70-6.10); RED CELL DISTRIBUTION WIDTH 19.3 % (11.5-14.5)
[2018-11-03 06:35] LABS: PLATELET COUNT 56 10^3/UL (140-415)
[2018-11-03] MEDS: predniSONE 5 MG TAB PO (08:55)
[2018-11-03] MEDS: DOCUSATE SODIUM 10 MG/ML (10ML CUP) PO (08:55)
[2018-11-03] MEDS: [UNRECOGNIZED DRUG - OTHER] PO (08:56)
[2018-11-03] MEDS: ENOXAPARIN 40 MG/0.4 ML SYG SC (09:00)
[2018-11-03] MEDS: CEFTRIAXONE 1 GM/50 ML (PMX) 50 ML IVPB (15:00)
[2018-11-03] MEDS: DOCUSATE SODIUM 100 MG CAP PO (15:55)
[2018-11-03] MEDS: SOD FERRIC GLUC COMPLX 125 MG in SOD CHLORIDE 0.9% 100 ML IVPB (18:09)
== END 2018-11-03 19:55 | DRG 481 ==
LOC: E/R 07:37 → 2NE 08:36
PROC: 0QS706Z Reposition Left Upper Femur with Intramedullary Internal Fixation Device, Open Approach (ICD-10-PCS; principal; 2018-10-31 15:00)
PROC: 30233R1 Transfusion of Nonautologous Platelets into Peripheral Vein, Percutaneous Approach (ICD-10-PCS; 2018-10-31 15:00)
PROC: 30233N1 Transfusion of Nonautologous Red Blood Cells into Peripheral Vein, Percutaneous Approach (ICD-10-PCS; 2018-10-31 15:50)
DX: S72.142A Displaced intertrochanteric fracture of left femur, initial encounter for closed fracture (principal); N39.0 Urinary tract infection, site not specified; D62 Acute posthemorrhagic anemia; D61.818 Other pancytopenia; G93.49 Other encephalopathy; D69.59 Other secondary thrombocytopenia; E87.6 Hypokalemia; R53.81 Other malaise; E03.9 Hypothyroidism, unspecified; F10.10 Alcohol abuse, uncomplicated; E83.39 Other disorders of phosphorus metabolism; D63.8 Anemia in other chronic diseases classified elsewhere; K70.30 Alcoholic cirrhosis of liver without ascites; Z85.46 Personal history of malignant neoplasm of prostate; Z85.51 Personal history of malignant neoplasm of bladder; W18.30XA Fall on same level, unspecified, initial encounter; Y92.009 Unspecified place in unspecified non-institutional (private) residence as the place of occurrence of the external cause
CPT/HCPCS: 36415; 36430; 70450; 71045; 73500; 73510; 73530; 80048; 80053; 81001; 82140; 82607; 82746; 83735; 84100; 84484; 85025; 85610; 85730; 86644; 86850; 86900; 86901; 86920; 86945; 87086; 93005; 93306; 97110; 97162; 97530; 99285-25

== ENCOUNTER 2018-11-03 20:00 | Inpatient (IN) | payer MEDICARE, OTHER ==
[2018-11-03] MEDS ORDERED: ONDANSETRON 4 MG INJ IV (22:01)
[2018-11-03] MEDS ORDERED: DOCUSATE SODIUM 100 MG CAP PO (22:01)
[2018-11-03] MEDS ORDERED: NACL 0.9% 3 ML SYG IV (22:01)
[2018-11-03] MEDS ORDERED: morphine SULFATE/PF (2 MG/2 ML) SYG IV (22:01)
[2018-11-03] MEDS ORDERED: CEFTRIAXONE 1 GM/50 ML (PMX) 50 ML IVPB (22:01)
[2018-11-04] MEDS ORDERED: BISACODYL 10 MG SUPP PR
[2018-11-04 02:22] LABS: ADD UMIC YES; UR ASCORBIC ACID NEGATIVE (NEGATIVE); UR BACTERIA FEW /HPF (NONE SEEN); UR BILIRUBIN (Dip) NEGATIVE (NEGATIVE); UR BLOOD (Dip) 3+ mg/dL (NEGATIVE); UR BUDDING YEAST MANY /HPF (NONE SEEN); UR CLARITY CLOUDY (CLEAR); UR COLOR AMBER (YELLOW); UR GLUCOSE (Dip) NEGATIVE (NEGATIVE); UR KETONES (Dip) NEGATIVE (NEGATIVE); UR LEUKOCYTE ESTERASE (Dip) 2+ Leu/ul (NEGATIVE); UR MUCUS FEW /HPF (NONE SEEN); UR NITRITE (Dip) NEGATIVE (NEGATIVE); UR RBC > 182 /HPF (0-5); UR SPECIFIC GRAVITY (Dip) 1.023 (1.003-1.030); UR TOTAL PROTEIN (Dip) 1+ mg/dl (NEGATIVE); UR UROBILINOGEN (Dip) 2+ mg/dL (NEGATIVE); UR WBC > 182 /HPF (0-5)
[2018-11-04] MEDS: LEVOTHYROXINE 125 MCG TAB PO (06:15)
[2018-11-04] MEDS: PANTOPRAZOLE (EC) 40 MG TAB PO (06:15)
[2018-11-04 06:23] LABS: ADD MAN DIFF? NO
[2018-11-04 06:25] LABS: ABNORMAL IP MESSAGE 1; BASOPHILS % 0.3 % (0.0-2.0); EOSINOPHILS # 0.1 10^3/ul (0.0-0.5); EOSINOPHILS % 3.3 % (0.0-7.0); HEMATOCRIT 26.5 % (42.0-52.0); HEMOGLOBIN 8.3 g/dl (14.0-18.0); LYMPHOCYTES # 1.2 10^3/ul (0.8-2.9); LYMPHOCYTES % 30.8 % (15.0-51.0); MEAN CORPUSCULAR HEMOGLOBIN 32.8 pg (29.0-33.0); MEAN CORPUSCULAR HGB CONC 31.3 g/dl (32.0-37.0); MEAN CORPUSCULAR VOLUME 104.7 fl (82.0-101.0); MONOCYTE # 0.5 10^3/ul (0.3-0.9); MONOCYTES % 11.3 % (0.0-11.0); NEUTROPHIL # 2.2 10^3/ul (1.6-7.5); NEUTROPHILS % 53.5 % (39.0-77.0); PLATELET COUNT 59 10^3/UL (140-415); POSITIVE DIFF @See below; RED BLOOD COUNT 2.53 10^6/ul (4.70-6.10); RED CELL DISTRIBUTION WIDTH 19.8 % (11.5-14.5)
[2018-11-04 06:54] LABS: ALANINE AMINOTRANSFERASE 23 IU/L (13-69); ALBUMIN 1.9 g/dl (3.3-4.9); ALBUMIN/GLOBULIN RATIO 0.65; ALKALINE PHOSPHATASE 63 IU/L (42-121); ANION GAP 1 (5-13); ASPARTATE AMINO TRANSFERASE 45 IU/L (15-46); BILIRUBIN,INDIRECT 1.8 mg/dl (0-1.1); BILIRUBIN,TOTAL 1.8 mg/dl (0.2-1.3); BLOOD UREA NITROGEN 28 mg/dl (7-20); CALCIUM 9.9 mg/dl (8.4-10.2); CARBON DIOXIDE 21 mmol/L (21-31); CHLORIDE 122 mmol/L (97-110); GLUCOSE 91 mg/dl (70-220); POTASSIUM 4.2 mmol/L (3.5-5.1); SODIUM 144 mmol/L (135-144); TOTAL PROTEIN 4.8 g/dl (6.1-8.1)
[2018-11-04] MEDS ORDERED: DOCUSATE SODIUM 100 MG CAP PO (09:00)
[2018-11-04] MEDS: [UNRECOGNIZED DRUG - OTHER] PO (09:00)
[2018-11-04] MEDS ORDERED: SOD CHLORIDE 0.9% 1,000 ML IV (10:30)
[2018-11-04 10:55] LABS: AMMONIA 14 umol/l (9-30)
[2018-11-04 10:57] LABS: IRON 160 ug/dl (35-150)
[2018-11-04 11:06] LABS: % IRON SATURATION 70 % SAT (22-52); TOTAL IRON BINDING CAPACITY 228 ug/dl (241-421)
[2018-11-04 11:31] LABS: INR 1.39; PROTIME 17.2 Sec (11.9-14.9); PT RATIO 1.3
[2018-11-04 11:32] LABS: PARTIAL THROMBOPLASTIN TIME 39.7 Sec (23.0-35.0)
[2018-11-04] MEDS: DOCUSATE SODIUM 10 MG/ML (10ML CUP) PO (11:40)
[2018-11-04] MEDS: predniSONE 5 MG TAB PO ×2 (11:40→20:28)
[2018-11-04] MEDS: ENOXAPARIN 40 MG/0.4 ML SYG SC (11:45)
[2018-11-04] MEDS: ALBUMIN HUMAN 25% 100 ML IV (14:39)
[2018-11-04] MEDS: ACETAMINOPHEN 325 MG TAB PO (14:44)
[2018-11-04] MEDS ORDERED: CEFTRIAXONE 1 GM/50 ML (PMX) 50 ML IVPB (15:00)
[2018-11-04] MEDS: PIPER-TAZO 3.375 GM IV (PMX) 100 ML IVPB ×2 (15:57→21:29)
[2018-11-04] MEDS ORDERED: morphine LIQ (10 MG/5 ML) CUP PO (17:00)
[2018-11-04] MEDS: SENNA TAB PO (20:28)
[2018-11-05] MEDS: PIPER-TAZO 3.375 GM IV (PMX) 100 ML IVPB (06:07)
[2018-11-05] MEDS: PANTOPRAZOLE (EC) 40 MG TAB PO (06:08)
[2018-11-05] MEDS: LEVOTHYROXINE 125 MCG TAB PO (06:08)
[2018-11-05 07:39] LABS: ADD MAN DIFF? NO
[2018-11-05 07:46] LABS: ABNORMAL IP MESSAGE 1; BASOPHILS % 0.3 % (0.0-2.0); EOSINOPHILS # 0.1 10^3/ul (0.0-0.5); EOSINOPHILS % 1.7 % (0.0-7.0); HEMATOCRIT 24.8 % (42.0-52.0); HEMOGLOBIN 7.7 g/dl (14.0-18.0); LYMPHOCYTES # 0.9 10^3/ul (0.8-2.9); MEAN CORPUSCULAR HEMOGLOBIN 33.2 pg (29.0-33.0); MEAN CORPUSCULAR VOLUME 106.9 fl (82.0-101.0); MEAN PLATELET VOLUME 10.1 fl (7.4-10.4); MONOCYTE # 0.3 10^3/ul (0.3-0.9); MONOCYTES % 10.7 % (0.0-11.0); NEUTROPHIL # 1.7 10^3/ul (1.6-7.5); NEUTROPHILS % 56.6 % (39.0-77.0); PLATELET COUNT 44 10^3/UL (140-415); POSITIVE DIFF @See below; RED BLOOD COUNT 2.32 10^6/ul (4.70-6.10); RED CELL DISTRIBUTION WIDTH 20.5 % (11.5-14.5)
[2018-11-05 08:05] LABS: ALANINE AMINOTRANSFERASE 22 IU/L (13-69); ALBUMIN 2.1 g/dl (3.3-4.9); ALBUMIN/GLOBULIN RATIO 0.72; ALKALINE PHOSPHATASE 69 IU/L (42-121); ANION GAP 5 (5-13); ASPARTATE AMINO TRANSFERASE 40 IU/L (15-46); BILIRUBIN,INDIRECT 2.4 mg/dl (0-1.1); BILIRUBIN,TOTAL 2.6 mg/dl (0.2-1.3); BLOOD UREA NITROGEN 24 mg/dl (7-20); CALCIUM 10.1 mg/dl (8.4-10.2); CARBON DIOXIDE 19 mmol/L (21-31); CHLORIDE 120 mmol/L (97-110); CREATININE 0.81 mg/dl (0.61-1.24); GLUCOSE 111 mg/dl (70-220); MAGNESIUM 2.1 mg/dl (1.7-2.5); SODIUM 144 mmol/L (135-144)
[2018-11-05 08:09] LABS: POTASSIUM 3.8 mmol/L (3.5-5.1)
[2018-11-05] MEDS: [UNRECOGNIZED DRUG - OTHER] PO (09:00)
[2018-11-05] MEDS: MEGESTROL (40 MG/ML) 10ML CUP PO ×2 (09:13→22:39)
[2018-11-05] MEDS: LACTULOSE 30ML CUP PO (09:13)
[2018-11-05] MEDS: predniSONE 5 MG TAB PO ×2 (09:14→22:39)
[2018-11-05] MEDS: ENOXAPARIN 40 MG/0.4 ML SYG SC (09:14)
[2018-11-05] MEDS: HYDROmorphONE 1 MG/ML SYG IV (09:15)
[2018-11-05] MEDS ORDERED: FLUCONAZOLE 100 MG TAB (14:29)
[2018-11-05] MEDS: FLUCONAZOLE 100 MG TAB PO (15:27)
[2018-11-05] MEDS: SENNA TAB PO (22:39)
[2018-11-06] MEDS: PANTOPRAZOLE (EC) 40 MG TAB PO (06:03)
[2018-11-06] MEDS: LEVOTHYROXINE 125 MCG TAB PO (06:03)
[2018-11-06 08:26] LABS: ADD MAN DIFF? NO
[2018-11-06 08:39] LABS: ABNORMAL IP MESSAGE 1; BASOPHILS % 0.6 % (0.0-2.0); EOSINOPHILS # 0.1 10^3/ul (0.0-0.5); EOSINOPHILS % 2.6 % (0.0-7.0); HEMATOCRIT 26.6 % (42.0-52.0); HEMOGLOBIN 8.2 g/dl (14.0-18.0); LYMPHOCYTES % 29.4 % (15.0-51.0); MEAN CORPUSCULAR HEMOGLOBIN 33.5 pg (29.0-33.0); MEAN CORPUSCULAR HGB CONC 30.8 g/dl (32.0-37.0); MEAN CORPUSCULAR VOLUME 108.6 fl (82.0-101.0); MEAN PLATELET VOLUME 10.9 fl (7.4-10.4); MONOCYTE # 0.4 10^3/ul (0.3-0.9); MONOCYTES % 10.5 % (0.0-11.0); NEUTROPHIL # 1.9 10^3/ul (1.6-7.5); NEUTROPHILS % 56.3 % (39.0-77.0); NUCLEATED RED BLOOD CELLS% 1.2 /100WBC (0.0-0.0); PLATELET COUNT 70 10^3/UL (140-415); POSITIVE DIFF @See below; RED BLOOD COUNT 2.45 10^6/ul (4.70-6.10)
[2018-11-06 08:39] LABS: WHITE BLOOD COUNT 3.4 10^3/ul (4.8-10.8)
[2018-11-06 09:19] LABS: ANION GAP 5 (5-13); BLOOD UREA NITROGEN 22 mg/dl (7-20); CALCIUM 10.2 mg/dl (8.4-10.2); CARBON DIOXIDE 21 mmol/L (21-31); CHLORIDE 117 mmol/L (97-110); CREATININE 0.71 mg/dl (0.61-1.24); GLUCOSE 113 mg/dl (70-220); MAGNESIUM 2.1 mg/dl (1.7-2.5); PHOSPHORUS 1.9 mg/dl (2.5-4.9); SODIUM 143 mmol/L (135-144)
[2018-11-06] MEDS: predniSONE 5 MG TAB PO ×2 (11:40→20:54)
[2018-11-06] MEDS: MEGESTROL (40 MG/ML) 10ML CUP PO ×2 (11:40→20:54)
[2018-11-06] MEDS: NEUTRA-PHOS 250 MG PACKET PO ×2 (11:43→16:50)
[2018-11-06] MEDS: ENOXAPARIN 40 MG/0.4 ML SYG SC (12:04)
[2018-11-06] MEDS ORDERED: SILVER NITRATE SWAB TOP (13:06)
[2018-11-06] MEDS: SILVER NITRATE SWAB TOP (13:31)
[2018-11-06] MEDS: VORICONAZOLE 200 MG TAB PO ×3 (16:50→20:54)
[2018-11-06] MEDS: HYDROCODONE/APAP (5/325) TAB PO (17:59)
[2018-11-06] MEDS: CLOTRIMAZOLE 1% 30 GM CR TOP (20:54)
[2018-11-06] MEDS: SENNA TAB PO (20:54)
[2018-11-07] MEDS: LEVOTHYROXINE 125 MCG TAB PO (06:31)
[2018-11-07] MEDS: PANTOPRAZOLE (EC) 40 MG TAB PO (06:31)
[2018-11-07] MEDS: HYDROmorphONE 1 MG/ML SYG IV ×3 (10:30→17:46)
[2018-11-07] MEDS: MEGESTROL (40 MG/ML) 10ML CUP PO ×2 (11:09→21:22)
[2018-11-07] MEDS: VORICONAZOLE 200 MG TAB PO ×2 (11:10→22:03)
[2018-11-07] MEDS: predniSONE 5 MG TAB PO ×2 (11:11→21:23)
[2018-11-07] MEDS: ENOXAPARIN 40 MG/0.4 ML SYG SC (11:12)
[2018-11-07] MEDS: CLOTRIMAZOLE 1% 30 GM CR TOP ×2 (11:12→21:23)
[2018-11-07] MEDS: SENNA TAB PO (21:23)
[2018-11-08] MEDS: PANTOPRAZOLE (EC) 40 MG TAB PO (06:47)
[2018-11-08] MEDS: LEVOTHYROXINE 125 MCG TAB PO (06:47)
[2018-11-08] MEDS: [UNRECOGNIZED DRUG - REMARK] PO (06:51)
[2018-11-08] MEDS: CLOTRIMAZOLE 1% 30 GM CR TOP ×2 (08:57→21:58)
[2018-11-08] MEDS: ACETAMINOPHEN 325 MG TAB PO (08:57)
[2018-11-08] MEDS: VORICONAZOLE 200 MG TAB PO ×2 (08:57→21:58)
[2018-11-08] MEDS: MEGESTROL (40 MG/ML) 10ML CUP PO ×2 (08:57→21:58)
[2018-11-08] MEDS: predniSONE 5 MG TAB PO ×2 (10:23→21:58)
[2018-11-08] MEDS: ENOXAPARIN 40 MG/0.4 ML SYG SC (10:24)
[2018-11-08] MEDS: MULTIVITAMINS THERAPEUTIC TAB PO (11:30)
[2018-11-08] MEDS: SENNA TAB PO (21:58)
[2018-11-09] MEDS: [UNRECOGNIZED DRUG - REMARK] PO (06:43)
[2018-11-09] MEDS: PANTOPRAZOLE (EC) 40 MG TAB PO (06:45)
[2018-11-09] MEDS: LEVOTHYROXINE 125 MCG TAB PO (06:45)
[2018-11-09] MEDS: CLOTRIMAZOLE 1% 30 GM CR TOP ×2 (09:24→20:57)
[2018-11-09] MEDS: VORICONAZOLE 200 MG TAB PO ×2 (09:25→20:57)
[2018-11-09] MEDS: HYDROCODONE/APAP (5/325) TAB PO ×3 (09:25→22:11)
[2018-11-09] MEDS: MULTIVITAMINS THERAPEUTIC TAB PO (09:25)
[2018-11-09] MEDS: predniSONE 5 MG TAB PO ×2 (09:25→20:57)
[2018-11-09] MEDS: MEGESTROL (40 MG/ML) 10ML CUP PO ×2 (09:26→20:56)
[2018-11-09] MEDS: ENOXAPARIN 40 MG/0.4 ML SYG SC (09:26)
[2018-11-09] MEDS: SENNA TAB PO (20:56)
[2018-11-10] MEDS: HYDROCODONE/APAP (5/325) TAB PO (05:22)
[2018-11-10] MEDS: PANTOPRAZOLE (EC) 40 MG TAB PO (05:23)
[2018-11-10] MEDS: [UNRECOGNIZED DRUG - REMARK] PO (05:27)
[2018-11-10] MEDS: LEVOTHYROXINE 125 MCG TAB PO (05:29)
[2018-11-10] MEDS: CLOTRIMAZOLE 1% 30 GM CR TOP ×2 (09:00→20:30)
[2018-11-10] MEDS: MULTIVITAMINS THERAPEUTIC TAB PO (09:00)
[2018-11-10] MEDS: predniSONE 5 MG TAB PO ×2 (09:00→20:31)
[2018-11-10] MEDS: VORICONAZOLE 200 MG TAB PO ×2 (09:00→20:31)
[2018-11-10] MEDS: MEGESTROL (40 MG/ML) 10ML CUP PO ×2 (09:00→20:31)
[2018-11-10] MEDS: HYDROmorphONE 1 MG/ML SYG IV ×2 (09:06→18:02)
[2018-11-10 12:08] LABS: ADD MAN DIFF? NO
[2018-11-10 12:10] LABS: ABNORMAL IP MESSAGE 1; BASOPHILS % 0.1 % (0.0-2.0); EOSINOPHILS # 0.1 10^3/ul (0.0-0.5); EOSINOPHILS % 1.3 % (0.0-7.0); HEMATOCRIT 29.7 % (42.0-52.0); HEMOGLOBIN 9.1 g/dl (14.0-18.0); LYMPHOCYTES # 1.9 10^3/ul (0.8-2.9); LYMPHOCYTES % 23.2 % (15.0-51.0); MEAN CORPUSCULAR HEMOGLOBIN 33.8 pg (29.0-33.0); MEAN CORPUSCULAR HGB CONC 30.6 g/dl (32.0-37.0); MEAN CORPUSCULAR VOLUME 110.4 fl (82.0-101.0); MEAN PLATELET VOLUME 10.3 fl (7.4-10.4); MONOCYTE # 0.5 10^3/ul (0.3-0.9); MONOCYTES % 6.7 % (0.0-11.0); NEUTROPHIL # 5.4 10^3/ul (1.6-7.5); NEUTROPHILS % 68.2 % (39.0-77.0); PLATELET COUNT 89 10^3/UL (140-415); POSITIVE DIFF @See below; RED BLOOD COUNT 2.69 10^6/ul (4.70-6.10); RED CELL DISTRIBUTION WIDTH 24.1 % (11.5-14.5)
[2018-11-10] MEDS: ENOXAPARIN 40 MG/0.4 ML SYG SC (18:04)
[2018-11-10] MEDS: SENNA TAB PO (20:31)
[2018-11-11] MEDS: PANTOPRAZOLE (EC) 40 MG TAB PO (05:55)
[2018-11-11] MEDS: [UNRECOGNIZED DRUG - REMARK] PO (06:10)
[2018-11-11] MEDS: LEVOTHYROXINE 125 MCG TAB PO (06:10)
[2018-11-11] MEDS: VORICONAZOLE 200 MG TAB PO ×2 (08:56→21:05)
[2018-11-11] MEDS: MEGESTROL (40 MG/ML) 10ML CUP PO ×2 (08:56→21:05)
[2018-11-11] MEDS: CLOTRIMAZOLE 1% 30 GM CR TOP ×2 (08:56→21:06)
[2018-11-11] MEDS: MULTIVITAMINS THERAPEUTIC TAB PO (08:56)
[2018-11-11] MEDS: predniSONE 5 MG TAB PO ×2 (08:56→21:05)
[2018-11-11] MEDS: ENOXAPARIN 40 MG/0.4 ML SYG SC (12:33)
[2018-11-11] MEDS: SENNA TAB PO (21:05)
[2018-11-12] MEDS: PANTOPRAZOLE (EC) 40 MG TAB PO (06:34)
[2018-11-12] MEDS: LEVOTHYROXINE 125 MCG TAB PO (06:34)
[2018-11-12] MEDS: [UNRECOGNIZED DRUG - REMARK] PO (06:57)
[2018-11-12] MEDS: CLOTRIMAZOLE 1% 30 GM CR TOP ×2 (09:31→21:26)
[2018-11-12] MEDS: VORICONAZOLE 200 MG TAB PO (09:31)
[2018-11-12] MEDS: MEGESTROL (40 MG/ML) 10ML CUP PO ×2 (09:31→20:39)
[2018-11-12] MEDS: MULTIVITAMINS THERAPEUTIC TAB PO (09:31)
[2018-11-12] MEDS: predniSONE 5 MG TAB PO ×2 (09:31→20:39)
[2018-11-12] MEDS: ACETAMINOPHEN 325 MG TAB PO (09:32)
[2018-11-12] MEDS: ENOXAPARIN 40 MG/0.4 ML SYG SC (09:36)
[2018-11-12] MEDS: SENNA TAB PO (20:39)
[2018-11-12] MEDS: HYDROCODONE/APAP (5/325) TAB PO (20:39)
[2018-11-13] MEDS: PANTOPRAZOLE (EC) 40 MG TAB PO (06:30)
[2018-11-13] MEDS: LEVOTHYROXINE 125 MCG TAB PO (06:30)
[2018-11-13] MEDS: [UNRECOGNIZED DRUG - REMARK] PO (06:32)
[2018-11-13] MEDS: predniSONE 5 MG TAB PO (09:00)
[2018-11-13] MEDS: CLOTRIMAZOLE 1% 30 GM CR TOP (11:01)
[2018-11-13] MEDS: HYDROCODONE/APAP (5/325) TAB PO (11:01)
[2018-11-13] MEDS: MULTIVITAMINS THERAPEUTIC TAB PO (11:02)
[2018-11-13] MEDS: MEGESTROL (40 MG/ML) 10ML CUP PO (11:02)
[2018-11-13] MEDS: ENOXAPARIN 40 MG/0.4 ML SYG SC (11:06)
== END 2018-11-13 12:00 | DRG 559 ==
LOC: VRC 20:00
PROC: F07Z5ZZ Bed Mobility Treatment (ICD-10-PCS; principal; 2018-11-03)
PROC: F08Z2ZZ Grooming/Personal Hygiene Treatment (ICD-10-PCS; 2018-11-03)
PROC: F06Z6ZZ Communicative/Cognitive Integration Skills Treatment (ICD-10-PCS; 2018-11-03)
DX: S72.144D Nondisplaced intertrochanteric fracture of right femur, subsequent encounter for closed fracture with routine healing (principal); G92 Toxic encephalopathy; N39.0 Urinary tract infection, site not specified; D61.818 Other pancytopenia; R64 Cachexia; G89.18 Other acute postprocedural pain; R13.10 Dysphagia, unspecified; E87.6 Hypokalemia; K70.30 Alcoholic cirrhosis of liver without ascites; Z98.890 Other specified postprocedural states; Z85.51 Personal history of malignant neoplasm of bladder; E83.39 Other disorders of phosphorus metabolism; E80.6 Other disorders of bilirubin metabolism; Z74.09 Other reduced mobility; Z85.46 Personal history of malignant neoplasm of prostate; Z68.25 Body mass index [BMI] 25.0-25.9, adult; F06.31 Mood disorder due to known physiological condition with depressive features; B35.1 Tinea unguium; W19.XXXD Unspecified fall, subsequent encounter
CPT/HCPCS: 73500; 80048; 80053; 81001; 82140; 83540; 83735; 84100; 85025; 85610; 85730; 87040; 87081; 87086; 97110; 97112; 97116; 97163; 97167; 97530; 97535; 97542